=== PATIENT | female | born 1955 | race Caucasian/White ===

== ENCOUNTER 2018-08-29 12:41 | Emergency (ER) | payer BC ==
--- NOTE | 2018-08-29 13:49 | EDM.PDOC ---
ED HPI GENERAL MEDICAL PROBLEM - General Chief Complaint: ENT Problem Stated Complaint: SWALLOWED STIPLE Time Seen by Provider: 08/29/18 13:16 Source of Information: Reports: Patient History Limitations: Reports: No Limitations - History of Present Illness INITIAL COMMENTS - FREE TEXT/NARRATIVE: HISTORY AND PHYSICAL: History of present illness: Patient is a 63-year-old female who presented to the emergency room with complaints of sensation of foreign body in her throat. She states she had a staple in her mouth and had felt that it had gone into her airway. She has pain to the left mid throat. "I can feel it stuck there". She denies any difficulty breathing, drooling, talking or hemoptysis. Denies any fever, chills, chest pain, shortness of breath or cough. Denies any abdominal pain, nausea, vomiting, diarrhea, constipation or dysuria. She states she has drank water without any difficulty. Review of systems: As per history of present illness and below otherwise all systems reviewed and negative. Past medical history: As per history of present illness and as reviewed below otherwise noncontributory. Surgical history: As per history of present illness and as reviewed below otherwise noncontributory. Social history: See social history for further information Family history: As per history of present illness and as reviewed below otherwise noncontributory. Physical exam: General: Well-developed and well-nourished 63-year-old female. Alert and oriented. Nontoxic appearing and in no acute distress. HEENT: Atraumatic, normocephalic, pupils equal and reactive bilaterally, negative for conjunctival pallor or scleral icterus, mucous membranes moist, TMs normal bilaterally, throat clear, neck supple, nontender, trachea midline. No drooling or trismus noted. No meningeal signs. No hot potato voice noted. Lungs: Clear to auscultation, breath sounds equal bilaterally, chest nontender. Heart: S1S2, regular rate and rhythm without overt murmur Abdomen: Soft, nondistended, nontender. Negative for masses or hepatosplenomegaly. Negative for costovertebral tenderness. Pelvis: Stable nontender. Genitourinary: Deferred. Rectal: Deferred. Skin: Intact, warm, dry. No lesions or rashes noted. Extremities: Atraumatic, negative for cords or calf pain. Neurovascular unremarkable. Neuro: Awake, alert, oriented. Cranial nerves II through XII unremarkable. Cerebellum unremarkable. Motor and sensory unremarkable throughout. Exam nonfocal. Notes: X-rays show no evidence of foreign body. This information was shared with the patient. We discussed the need for follow-up care if she continues to have symptoms. We will give her some miracle mouthwash to alleviate her discomfort. We reviewed signs and symptoms that would prompt her to return to the emergency room. Diagnostics: Soft tissue neck x-ray, 2 view chest x-ray Therapeutics: NA Prescription: Mouthwash Impression: Sensation of foreign body Plan: 1. Tylenol and/or ibuprofen as needed for pain management. Over the next 24-48 hours please eat a soft bland foods to avoid irritation. 2. Please follow-up with your primary care provider and/or the general surgeon as we discussed on Saturday. Return to the ED as needed and as discussed. Definitive disposition and diagnosis as appropriate pending reevaluation and review of above. Throat Pain Score (Numeric/FACES): 1 - Related Data Allergies Allergy/AdvReac Type Severity Reaction Status Date / Time No Known Allergies Allergy Verified 08/29/18 13:08 Home Meds: Home Meds Phentermine HCl 37.5 mg PO DAILY 08/29/18 [History] Thyroid [Lavinia Thyroid] 1 tab DAILY 08/29/18 [History] buPROPion HCl [Wellbutrin Xl] 300 mg PO DAILY 08/29/18 [History] hydroCHLOROthiazide [Hydrochlorothiazide] 50 mg PO DAILY 08/29/18 [History] Past Medical History Cardiovascular History: Reports: Hypertension Psychiatric History: Reports: Depression Endocrine/Metabolic History: Reports: Hypothyroidism - Past Surgical History HEENT Surgical History: Reports: Adenoidectomy, Tonsillectomy GI Surgical History: Reports: Cholecystectomy Female Surgical History: Reports: Hysterectomy Musculoskeletal Surgical History: Reports: Other (See Below) Other Musculoskeletal Surgeries/Procedures:: right foot Social & Family History - Family History Family Medical History: Noncontributory - Tobacco Use Smoking Status *Q: Never Smoker Second Hand Smoke Exposure: No - Recreational Drug Use Recreational Drug Use: No ED ROS ENT - Review of Systems Review Of Systems: ROS reveals no pertinent complaints other than HPI. ED EXAM, ENT - Physical Exam Exam: See Below (See dictation) Course - Vital Signs Last Recorded V/S: Last Vital Signs Temp 97.6 F 08/29/18 13:05 Pulse 88 08/29/18 13:05 Resp 18 08/29/18 13:05 BP 156/101 H 08/29/18 13:05 Pulse Ox 93 L 08/29/18 13:05 Departure - Departure Time of Disposition: 14:38 Disposition: Home, Self-Care 01 Clinical Impression: Sensation of foreign body in esophagus - Discharge Information Instructions: Swallowed Foreign Body, Adult, [id number] Referrals: Jessenia Lou DO [Primary Care Provider] - Forms: ED Department Discharge Additional Instructions: The following information is given to patients seen in the emergency department who are being discharged to home. This information is to outline your options for follow-up care. We provide all patients seen in our emergency department with a follow-up referral. The need for follow-up, as well as the timing and circumstances, are variable depending upon the specifics of your emergency department visit. If you don't have a primary care physician on staff, we will provide you with a referral. We always advise you to contact your personal physician following an emergency department visit to inform them of the circumstance of the visit and for follow-up with them and/or the need for any referrals to a consulting specialist. The emergency department will also refer you to a specialist when appropriate. This referral assures that you have the opportunity for follow-up care with a specialist. All of these measure are taken in an effort to provide you with optimal care, which includes your follow-up. Under all circumstances we always encourage you to contact your private physician who remains a resource for coordinating your care. When calling for follow-up care, please make the office aware that this follow-up is from your recent emergency room visit. If for any reason you are refused follow-up, please contact the [facility] at and asked to speak to the emergency department charge nurse. [facility] [address] [place] [id number] [address] [facility] - General [facility] Professional Building [address] [place] [address], [address] [place] [address] 1. Tylenol and/or ibuprofen as needed for pain management. Over the next 24-48 hours please eat a soft bland foods to avoid irritation. 2. Please follow-up with your primary care provider and/or the general surgeon as we discussed on Saturday. Return to the ED as needed and as discussed.
--- NOTE | 2018-08-29 14:22 | CR ---
EXAMINATION: Two-view chest (PA and Lateral views). HISTORY: Enhanced stable. FINDINGS: The trachea is midline. The cardiomediastinal silhouette is within normal limits. No pulmonary infiltrates, effusions or pneumothorax. No radiopaque foreign body identified. Osseous structures appear osteopenic. IMPRESSION: 1. No acute cardiopulmonary process. 2. No radiopaque foreign body noted.
--- NOTE | 2018-08-29 14:22 | CR ---
EXAMINATION: Soft tissue neck HISTORY: Inhaled staple COMPARISON: None TECHNIQUE: Lateral view FINDINGS: Cervical spinal alignment is normal. Prevertebral soft tissues are normal. Epiglottis is unremarkable. No radiopaque foreign body. Bone mineralization is normal. IMPRESSION: No radiopaque foreign body.
== END 2018-08-29 14:56 | disposition home or self-care (01) ==
LOC: MW.ED 12:41
DX: R19.8 Other specified symptoms and signs involving the digestive system and abdomen (principal); I10 Essential (primary) hypertension; F32.9 Major depressive disorder, single episode, unspecified; E03.9 Hypothyroidism, unspecified; Z79.899 Other long term (current) drug therapy
CPT/HCPCS: 70360; 70360-26; 71046; 71046-26; 99283